=== PATIENT | female | born 1985 | race Caucasian/White ===

== ENCOUNTER 2017-01-19 21:03 | Emergency (ER) | payer MEDICAID ==
[~2017-01-19] VITALS: Ht 162.6 cm; Wt 96.0 kg
[~2017-01-19 21:03] MED LIST: FERR1TAB51 PO; PREN-88 PO
[2017-01-20] MEDS ORDERED: MAGNESIUM/ALUMINUM HYDROXIDE/SIMETHICONE 30ML UDC PO STA (05:54)
[2017-01-20 06:32] LABS: BASOPHILS % 0.6 % (0.0-2.0); EOSINOPHILS % 1.6 % (0.0-5.0); HEMATOCRIT. 39.7 % (36.0-48.0); HEMOGLOBIN. 13.6 g/dL (12.0-16.0); LYMPHOCYTES % 35.3 % (20.0-50.0); MEAN CORPUSCULAR VOLUME 84.7 fL (81.0-99.0); MEAN PLATELET VOLUME 8.1 fl (7.4-10.4); MONOCYTES % 7.2 % (2.0-8.0); NEUTROPHILS % 55.3 % (40.0-76.0); PLATELET 306 x1000/uL (130-400); RED BLOOD CELL COUNT 4.68 mill/uL (4.2-5.4); RED CELL DISTRIBUTION WIDTH 13.8 % (11.6-14.6)
[2017-01-20 06:34] LABS: PROTHROMBIN TIME 10.7 sec
[2017-01-20 06:38] LABS: CARBON DIOXIDE 26 mEq/L (21-32); CHLORIDE 106 mEq/L (98-107)
[2017-01-20 07:08] VITALS: BP 124/75
[2017-01-20 07:12] LABS: CLARITY URINE CLOUDY (CLEAR); COLOR URINE YELLOW (YELLOW); GLUCOSE URINE NEGATIVE (NEGATIVE); KETONES URINE NEGATIVE (NEGATIVE); LEUKOCYTE ESTERASE URINE 3+ (NEGATIVE); NITRITE URINE NEGATIVE (NEGATIVE); OCCULT BLOOD URINE TRACE (NEGATIVE); PROTEIN URINE NEGATIVE (NEGATIVE); UROBILINOGEN URINE 0.2 E.U./dL (0.2-1.0)
[2017-01-20] MEDS ORDERED: FAMOTIDINE 20MG TABLET PO ONE (07:45)
[2017-01-20] MEDS ORDERED: VISCOUS LIDOCAINE 2% 15 ML UDC MM PRN (07:45)
[2017-01-20] MEDS ORDERED: ONDANSETRON 4MG ODT PO ONE (08:45)
== END 2017-01-20 09:17 | disposition home or self-care (01) ==
LOC: ER 21:03
DX: K29.70 Gastritis, unspecified, without bleeding (principal); H54.0 Blindness, both eyes
CPT/HCPCS: 36415; 80053; 81001; 81025; 83690; 85025; 85610; 99284

== ENCOUNTER 2019-09-27 20:13 | Emergency (ER) | payer MEDICAID, MEDICARE ==
[~2019-09-27] VITALS: Ht 172.7 cm; Wt 105.0 kg
[2019-09-27] MEDS ORDERED: ACETAMINOPHEN 325MG TABLET PO PRN (22:15)
[2019-09-27 22:30] LABS: CLARITY URINE CLOUDY (CLEAR); COLOR URINE YELLOW (YELLOW); KETONES URINE NEGATIVE (NEGATIVE); LEUKOCYTE ESTERASE URINE TRACE (NEGATIVE); NITRITE URINE NEGATIVE (NEGATIVE); OCCULT BLOOD URINE NEGATIVE (NEGATIVE); PH URINE 7.5 (4.5-8.0); PROTEIN URINE NEGATIVE (NEGATIVE); SPECIFIC GRAVITY URINE 1.022 (1.005-1.030)
[2019-09-27 22:36] LABS: BASOPHILS % 0.5 % (0.0-2.0); EOSINOPHILS % 1.6 % (0.0-5.0); HEMATOCRIT. 38.2 % (36.0-48.0); HEMOGLOBIN. 13.4 g/dL (12.0-16.0); LYMPHOCYTES % 30.5 % (20.0-50.0); MEAN CORPUSCULAR HEMOGLOBIN 30.3 pg (28.0-32.0); MEAN CORPUSCULAR VOLUME 86.1 fL (81.0-99.0); MEAN PLATELET VOLUME 8.4 fl (7.4-10.4); NEUTROPHILS % 60.4 % (40.0-76.0); PLATELET 286 x1000/uL (130-400); RED BLOOD CELL COUNT 4.44 mill/uL (4.2-5.4); RED CELL DISTRIBUTION WIDTH 13.8 % (11.6-14.6)
[2019-09-27 22:42] LABS: CHLORIDE 107 mEq/L (98-107)
[2019-09-27 23:05] LABS: B-HCG QUANTITATIVE 29125 mIU/mL (<3)
[2019-09-28 01:30] VITALS: BP 110/81
== END 2019-09-28 01:45 | disposition home or self-care (01) ==
LOC: ER 20:13
DX: N39.0 Urinary tract infection, site not specified (principal); R51 Headache; Z79.899 Other long term (current) drug therapy
CPT/HCPCS: 36415; 76801; 80053; 81003; 81025; 84702; 85025; 99284

== ENCOUNTER 2019-10-26 20:13 | Emergency (ER) | payer MEDICAID ==
[~2019-10-26] VITALS: Ht 172.7 cm; Wt 100.0 kg
[2019-10-26] MEDS ORDERED: SODIUM CHLORIDE 0.9% 1,000 ML IV ONE (20:59)
[2019-10-26] MEDS ORDERED: DIPHENHYDRAMINE 50MG/ML VIAL IV ONE (21:00)
[2019-10-26] MEDS ORDERED: METOCLOPRAMIDE HCL 10MG/2ML VIAL IV ONE (21:00)
[2019-10-26 21:18] LABS: BASOPHILS % 0.4 % (0.0-2.0); EOSINOPHILS % 2.1 % (0.0-5.0); HEMATOCRIT. 35.5 % (36.0-48.0); HEMOGLOBIN. 12.4 g/dL (12.0-16.0); LYMPHOCYTES % 24.6 % (20.0-50.0); MEAN CORPUSCULAR VOLUME 85.7 fL (81.0-99.0); MEAN PLATELET VOLUME 8.8 fl (7.4-10.4); MONOCYTES % 7.4 % (2.0-8.0); NEUTROPHILS % 65.5 % (40.0-76.0); PLATELET 251 x1000/uL (130-400); RED BLOOD CELL COUNT 4.14 mill/uL (4.2-5.4); RED CELL DISTRIBUTION WIDTH 13.8 % (11.6-14.6)
[2019-10-26 21:24] LABS: CHLORIDE 109 mEq/L (98-107)
[2019-10-26 23:32] VITALS: BP 125/71
== END 2019-10-26 23:34 | disposition home or self-care (01) ==
LOC: ER 20:13
DX: O26.892 Other specified pregnancy related conditions, second trimester (principal); R51 Headache; R11.0 Nausea; Z3A.00 Weeks of gestation of pregnancy not specified
CPT/HCPCS: 36415; 80053; 85025; 96374; 96375; 99284; J1200; J2765; J7030

== ENCOUNTER 2019-11-16 16:04 | Emergency (ER) | payer MEDICAID ==
[~2019-11-16] VITALS: Ht 152.4 cm; Wt 95.0 kg
[2019-11-16] MEDS ORDERED: ACETAMINOPHEN 325MG TABLET PO ONE (19:30)
[2019-11-16 20:25] LABS: CLARITY URINE CLEAR (CLEAR); COLOR URINE YELLOW (YELLOW); KETONES URINE TRACE (NEGATIVE); LEUKOCYTE ESTERASE URINE TRACE (NEGATIVE); NITRITE URINE NEGATIVE (NEGATIVE); OCCULT BLOOD URINE NEGATIVE (NEGATIVE); PROTEIN URINE NEGATIVE (NEGATIVE); SPECIFIC GRAVITY URINE 1.006 (1.005-1.030); UROBILINOGEN URINE 0.2 E.U./dL (0.2-1.0)
[2019-11-16 23:46] VITALS: BP 132/82
== END 2019-11-16 23:47 | disposition home or self-care (01) ==
LOC: ER 16:04
DX: O26.892 Other specified pregnancy related conditions, second trimester (principal); Z3A.17 17 weeks gestation of pregnancy; Z79.899 Other long term (current) drug therapy
CPT/HCPCS: 76805; 81003; 81025; 99284

== ENCOUNTER 2020-03-16 22:17 | Observation (INO) | payer MEDICAID ==
[~2020-03-16] VITALS: Ht 162.6 cm; Wt 102.5 kg
[2020-03-16] MEDS ORDERED: LACTATED RINGERS 1,000 ML IV SCH (23:30)
[2020-03-16] MEDS ORDERED: TERBUTALINE SULFATE 1MG/ML VIAL SUBCUT PRN (23:30)
[2020-03-16 23:57] LABS: CLARITY URINE CLEAR (CLEAR); COLOR URINE YELLOW (YELLOW); KETONES URINE 1+ (NEGATIVE); LEUKOCYTE ESTERASE URINE 3+ (NEGATIVE); NITRITE URINE NEGATIVE (NEGATIVE); OCCULT BLOOD URINE NEGATIVE (NEGATIVE); PH URINE 6.5 (4.5-8.0); PROTEIN URINE NEGATIVE (NEGATIVE); SPECIFIC GRAVITY URINE 1.009 (1.005-1.030); UROBILINOGEN URINE 0.2 E.U./dL (0.2-1.0)
== END 2020-03-17 01:30 | disposition home or self-care (01) ==
LOC: 8 EST LDRP 22:17
PROVIDERS: ADMIT Obstetrics & Gynecology; ATTEND Obstetrics & Gynecology
DX: O26.893 Other specified pregnancy related conditions, third trimester (principal); Z3A.34 34 weeks gestation of pregnancy
CPT/HCPCS: 59025; 81003; 96360; 96361; 96372; G0378; J3105; J7120; 99281

== ENCOUNTER 2020-04-09 11:00 | Observation (INO) | payer MEDICAID ==
[~2020-04-09] VITALS: Ht 165.1 cm; Wt 105.7 kg
[2020-04-09] MEDS ORDERED: ONDANSETRON HCL 4MG/2ML INJ IV ONE (11:45)
[2020-04-09] MEDS ORDERED: LACTATED RINGERS 1,000 ML IV SCH (11:45)
[2020-04-09] MEDS ORDERED: ACETAMINOPHEN 500MG TABLET PO ONE (11:45)
== END 2020-04-09 13:00 | disposition home or self-care (01) ==
LOC: 8 EST LDRP 11:00
PROVIDERS: ADMIT Obstetrics & Gynecology; ATTEND Obstetrics & Gynecology
DX: O99.89 Other specified diseases and conditions complicating pregnancy, childbirth and the puerperium (principal); R51 Headache; R11.0 Nausea; Z3A.38 38 weeks gestation of pregnancy
CPT/HCPCS: 59025; 96360; 96374; G0378; J2405; J7120; 99281

== ENCOUNTER 2024-10-17 11:39 | Emergency (ER) | payer MEDICAID ==
[~2024-10-17] VITALS: Ht 165.1 cm; Wt 104.3 kg
[2024-10-17 11:41] VITALS: O2SAT 100
[2024-10-17 11:56] VITALS: BP 174/109; PULSE 89; RESP 18; TEMP 37.1; O2SAT 100
[2024-10-17] MEDS ORDERED: MOXI3DRO12 LEFTEYE (15:22)
== END 2024-10-17 15:52 | disposition home or self-care (01) ==
LOC: ER 11:39
DX: H57.12 Ocular pain, left eye (principal); I10 Essential (primary) hypertension; Z98.890 Other specified postprocedural states
CPT/HCPCS: 99283